=== PATIENT | male | born 1965 | race Caucasian/White ===

== ENCOUNTER → 2021-12-26 | Outpatient (CLI) | payer OTHER ==
--- NOTE | 2021-12-27 04:14 | MR ---
EXAMINATION TYPE: MR shoulder LT wo con DATE OF EXAM: 12/26/2021 COMPARISON: None HISTORY: Left should pain, limited movement and locking for 3 weeks. Multiplanar multiecho imaging of the left shoulder performed without contrast. The subscapularis tendon is intact. There is increased signal and thinning of the biceps tendon. The glenoid mejia appear intact. There is some narrowing of the shoulder joint space. There is large defe ct in the supraspinatus tendon at the greater tuberosity of the humerus. There is some retraction of the tendon. There is moderate hypertrophic spurring at the AC joint with severe subacromial joint space narrowing . Humeral head is intact. There is mild shoulder joint effusion. There is increased signal in the infraspinatus tendon near the attachment on the humeral head and con sistent with small full-thickness tears. IMPRESSION: Large rotator cuff tear with retraction of the supraspinatus tendon. Severe subacromial joint space n arrowing and impingement. Shoulder joint effusion. Osteoarthritis of the glenohumeral joint.
== END | disposition home or self-care (01) ==
LOC: RADMRIMAIN 16:12
PROVIDERS: ATTEND Orthopaedic Surgery
DX: M75.112 Incomplete rotator cuff tear or rupture of left shoulder, not specified as traumatic (principal); M19.012 Primary osteoarthritis, left shoulder; M25.412 Effusion, left shoulder; M25.512 Pain in left shoulder